=== PATIENT | female | born 1950 | race Caucasian/White ===

== ENCOUNTER 2017-04-03 10:06 | Outpatient (CLI) | payer MEDICARE ==
--- NOTE | 2017-04-03 11:49 | MRI ---
BRAIN MRI WITH AND WITHOUT CONTRAST: INDICATION: Breast malignancy. FINDINGS: The ventricular system is normal in size. No significant segmental abnormalities of the unenhanced b rain parenchyma. No restricted diffusion. Central skull base flow voids are maintained. No patholo gic intraaxial hemorrhage. A focal area of scar involving the rhianna parietal scalp. No intracranial hemorrhagic susceptibility. IMPRESSION: No evidence of intracranial metastatic disease. POS: [facility]
== END 2017-04-03 10:07 | disposition home or self-care (01) ==
LOC: SCSMRI 10:06
PROVIDERS: ATTEND Internal Medicine Medical Oncology
DX: C50.211 Malignant neoplasm of upper-inner quadrant of right female breast (principal); R51 Headache
CPT/HCPCS: 70553

== ENCOUNTER 2019-07-26 12:52 | Outpatient (CLI) | payer MEDICARE ==
--- NOTE | 2019-07-26 14:01 | BD ---
BONE DENSITOMETRY USING DEXA: HISTORY: Postmenopausal screening for osteoporosis. Unspecified menopausal and perimenopausal disorder. FINDINGS: Lumbar Spine: BMD (g/cm2) L1 0.891 T-Score: -0.9 Z-Score: 1.0 L2 0.891 T-Score: -1.2 Z-Score: 0.9 L3 0.809 T-Score: -2.5 Z-Score: 0.3 L4 0.756 T-Score: -2.8 Z-Score: -0.5 L1-L4 0.832 T-Score: -2.0 Z-Score: 0.2 Femoral Neck: 0.654 T-Score: -1.8 Z-Score: 0.1 Total Femur: 0.821 T-Score: -1.0 Z-Score: 0.5 The 10-year fracture risk for a major osteoporotic fracture is 9.8% and for a hip fracture 1.6%. Impression: Osteopenia. POS: [facility]
== END 2019-07-26 12:53 | disposition home or self-care (01) ==
LOC: BICMAMMO 12:52
PROVIDERS: ATTEND Internal Medicine Hematology & Oncology
DX: Z13.820 Encounter for screening for osteoporosis (principal); N95.9 Unspecified menopausal and perimenopausal disorder; C50.211 Malignant neoplasm of upper-inner quadrant of right female breast; M85.89 Other specified disorders of bone density and structure, multiple sites
CPT/HCPCS: 77080